=== PATIENT | male | born 1975 | race Caucasian/White ===

== ENCOUNTER 2024-05-08 00:40 | Emergency (ER) | payer MEDICAID, OTHER ==
[~2024-05-08] VITALS: Ht 180.3 cm; Wt 69.0 kg
[~2024-05-08 00:40] MED LIST: ASPI-1406 MT; FURO-151 MT; LOSA-412 MT; SPIR25TA MT
[2024-05-08 00:45] VITALS: O2SAT 99
[2024-05-08 01:15] VITALS: BP 127/88; PULSE 105; RESP 18; TEMP 98.5; O2SAT 99
== END 2024-05-08 10:49 | disposition home or self-care (01) ==
LOC: ER 00:40
DX: R07.89 Other chest pain (principal); I50.9 Heart failure, unspecified; Z95.0 Presence of cardiac pacemaker; Z79.899 Other long term (current) drug therapy
CPT/HCPCS: 99283